=== PATIENT | male | born 1980 | race Two or more races ===

== ENCOUNTER 2023-08-20 20:03 | Emergency (ER) | payer BC ==
[~2023-08-20] VITALS: Ht 190.5 cm; Wt 88.5 kg
[2023-08-20] MEDS ORDERED: TRAMADOL HCL50 MG PO (22:56)
== END 2023-08-21 00:09 | disposition home or self-care (01) ==
LOC: ER 20:03
DX: S52.509A Unspecified fracture of the lower end of unspecified radius, initial encounter for closed fracture (principal); S52.202A Unspecified fracture of shaft of left ulna, initial encounter for closed fracture; W19.XXXA Unspecified fall, initial encounter; Y93.67 Activity, basketball; Y92.89 Other specified places as the place of occurrence of the external cause; Y99.8 Other external cause status; M12.532 Traumatic arthropathy, left wrist